=== PATIENT | male | born 1965 | race Caucasian/White ===

== ENCOUNTER 2016-07-19 12:45 | Emergency (ER) | payer MEDICAID, OTHER ==
[~2016-07-19] VITALS: Ht 170.2 cm; Wt 100.0 kg
[2016-07-19] MEDS ORDERED: SODIUM CHLORIDE 0.9% 1,000 ML IV ONE (15:21)
[2016-07-19 15:47] LABS: BASOPHILS % 1.4 % (0.0-2.0); EOSINOPHILS % 2.8 % (0.0-5.0); HEMATOCRIT. 42.5 % (42.0-52.0); HEMOGLOBIN. 14.2 g/dL (14.0-18.0); LYMPHOCYTES % 25.2 % (20.0-50.0); MEAN CORPUSCULAR HEMOGLOBIN 29.2 pg (28.0-32.0); MEAN CORPUSCULAR HGB CONC 33.3 g/dL (31.0-37.0); MEAN CORPUSCULAR VOLUME 87.7 fL (80.0-94.0); MEAN PLATELET VOLUME 8.3 fl (7.4-10.4); MONOCYTES % 8.4 % (2.0-8.0); NEUTROPHILS % 62.2 % (40.0-76.0); PLATELET 274 x1000/uL (130-400); RED BLOOD CELL COUNT 4.85 mill/uL (4.7-6.1); RED CELL DISTRIBUTION WIDTH 13.6 % (11.6-14.6); WHITE BLOOD COUNT 10.8 x1000/uL (4.5-11.0)
[2016-07-19 15:52] LABS: ALBUMIN 3.5 g/dL (3.4-5.0); ANION GAP 13; CALCIUM 8.3 mg/dL (8.5-10.1); CARBON DIOXIDE 25 mEq/L (21-32); CHLORIDE 107 mEq/L (98-107); INDEX HEMOLYSI 1 (1-3); INDEX ICTERIC 1 (1-4); INDEX LIPEMIC 1 (1-3); LIPASE 127 IU/L (73-393); UREA NITROGEN BLOOD 20 mg/dL (7-21)
[2016-07-19 15:54] LABS: INR 1.1; PARTIAL THROMBOPLASTIN TIME 27.1 sec (24.0-34.0); PROTHROMBIN TIME 11.7 sec
[2016-07-19 16:00] LABS: ALANINE AMINOTRANSFERASE 50 IU/L (13-61); eGFR > 60 mL/min (>60)
[2016-07-19 16:01] LABS: TROPONIN I 0.02 ng/mL (0.00-0.04)
[2016-07-19 18:54] VITALS: BP 135/88
[2016-07-19 18:56] LABS: CLARITY URINE CLEAR (CLEAR); COLOR URINE YELLOW (YELLOW); GLUCOSE URINE NEGATIVE (NEGATIVE); KETONES URINE 1+ (NEGATIVE); LEUKOCYTE ESTERASE URINE NEGATIVE (NEGATIVE); NITRITE URINE NEGATIVE (NEGATIVE); OCCULT BLOOD URINE NEGATIVE (NEGATIVE); PROTEIN URINE NEGATIVE (NEGATIVE); SPECIFIC GRAVITY URINE 1.028 (1.005-1.030)
[2016-07-19 19:07] LABS: *AMPHETAMINES SCREEN URINE PRESUMTIVE POSITIVE (NEGATIVE); *BARBITURATES SCREEN URINE NEGATIVE (NEGATIVE); *BENZODIAZEPINES SCREEN URINE NEGATIVE (NEGATIVE); *COCAINE SCREEN URINE NEGATIVE (NEGATIVE); CANNABINOID URINE SCREEN NEGATIVE (NEGATIVE); ECSTASY MDMA SCREEN URINE CONF.TEST INDICATED (NEGATIVE); METHADONE URINE SCREEN NEGATIVE (NEGATIVE); OPIATES URINE SCREEN NEGATIVE (NEGATIVE); PHENCYCLIDINE URINE SCREEN NEGATIVE (NEGATIVE)
== END 2016-07-19 19:12 | disposition home or self-care (01) ==
LOC: ER 15:19
DX: R42 Dizziness and giddiness (principal); F15.10 Other stimulant abuse, uncomplicated; F17.210 Nicotine dependence, cigarettes, uncomplicated
CPT/HCPCS: 36415; 80053; 80305; 81003; 83690; 84484; 85025; 85610; 85730; 93005; 96360; 99285; J7030; Z7610

== ENCOUNTER 2016-09-10 09:05 | Emergency (ER) | payer SELFPAY ==
[~2016-09-10] VITALS: Ht 172.7 cm; Wt 80.0 kg
[2016-09-10 11:19] VITALS: BP 102/60
== END 2016-09-10 11:26 | disposition home or self-care (01) ==
LOC: ER 09:06
DX: L24.5 Irritant contact dermatitis due to other chemical products (principal); F15.10 Other stimulant abuse, uncomplicated
CPT/HCPCS: 99283

== ENCOUNTER 2018-10-12 16:11 | Emergency (ER) | payer SELFPAY ==
[~2018-10-12] VITALS: Ht 170.2 cm; Wt 90.0 kg
[2018-10-12] MEDS ORDERED: TETANUS, DIPHTHERIA, PERTUSSIS VAC/PF 0.5ML (>7YR OLD) IM ONE (18:45)
[2018-10-12] MEDS ORDERED: ACETAMINOPHEN WITH CODEINE 300/30MG TABLET PO ONE (18:45)
[2018-10-12] MEDS ORDERED: LIDOCAINE HCL/PF 1% 10 MG/ML 5ML VIAL IJ ONE (18:45)
[2018-10-12] MEDS ORDERED: BACITRACIN ZINC OINT UDPKT TOP ONE (18:45)
[2018-10-12 20:34] VITALS: BP 128/82
== END 2018-10-12 20:36 | disposition home or self-care (01) ==
LOC: ER 16:11
DX: S01.81XA Laceration without foreign body of other part of head, initial encounter (principal); S41.012A Laceration without foreign body of left shoulder, initial encounter; Z90.49 Acquired absence of other specified parts of digestive tract; Z88.8 Allergy status to other drugs, medicaments and biological substances; W25.XXXA Contact with sharp glass, initial encounter; Y93.89 Activity, other specified; Y92.89 Other specified places as the place of occurrence of the external cause; Y99.8 Other external cause status
CPT/HCPCS: 12001; 12011; 70450; 90471; 90715; 99284; J3490; Z7610

== ENCOUNTER 2018-10-22 08:56 | Emergency (ER) | payer OTHER ==
[~2018-10-22] VITALS: Ht 170.2 cm; Wt 91.0 kg
[2018-10-22 09:08] VITALS: BP 142/89
== END 2018-10-22 09:50 | disposition home or self-care (01) ==
LOC: ER 08:56
DX: Z48.02 Encounter for removal of sutures (principal)
CPT/HCPCS: 99281

== ENCOUNTER 2019-12-24 17:55 | Inpatient (IN) | payer SELFPAY ==
[~2019-12-24] VITALS: Ht 170.2 cm; Wt 108.4 kg
[2019-12-24] MEDS ORDERED: MAGNESIUM/ALUMINUM HYDROXIDE/SIMETHICONE 30ML UDC PO ONE (18:15)
[2019-12-24] MEDS ORDERED: VISCOUS LIDOCAINE 2% 15 ML UDC PO ONE (18:15)
[2019-12-24] MEDS ORDERED: ASPIRIN 81MG TABLET PO ONE ×2 (18:15→18:30)
[2019-12-24 18:25] LABS: EOSINOPHILS % 1.9 % (0.0-5.0); HEMATOCRIT. 46.7 % (42.0-52.0); HEMOGLOBIN. 15.9 g/dL (14.0-18.0); LYMPHOCYTES % 34.5 % (20.0-50.0); MEAN CORPUSCULAR HEMOGLOBIN 30.6 pg (28.0-32.0); MEAN CORPUSCULAR VOLUME 90.2 fL (80.0-94.0); MEAN PLATELET VOLUME 8.1 fl (7.4-10.4); MONOCYTES % 11.5 % (2.0-8.0); NEUTROPHILS % 51.1 % (40.0-76.0); PLATELET 259 x1000/uL (130-400); RED BLOOD CELL COUNT 5.18 mill/uL (4.7-6.1)
[2019-12-24 18:30] LABS: CHLORIDE 107 mEq/L (98-107)
[2019-12-24] MEDS ORDERED: ONDANSETRON HCL 4MG/2ML INJ IV ONE (18:30)
[2019-12-24] MEDS ORDERED: MORPHINE SULFATE 2 MG/ML CPJ (NOT FOR IM USE) IV ONE (18:30)
[2019-12-24] MEDS ORDERED: NITROGLYCERIN 0.4MG TABLET SL SL ONE (18:30)
[2019-12-24 23:10] VITALS: BP 102/69
[2019-12-25] VITALS: BP 102/69
[2019-12-25] MEDS ORDERED: ONDANSETRON HCL 4MG TABLET PO PRN (00:30)
[2019-12-25] MEDS ORDERED: NITROGLYCERIN 0.4MG TABLET SL SL PRN (00:30)
[2019-12-25] MEDS ORDERED: KETOROLAC 15MG/ML VIAL IV PRN (00:30)
[2019-12-25 04:00] VITALS: BP 102/61
[2019-12-25] MEDS ORDERED: POTASSIUM CHLORIDE 20MEQ TABLET SR PO NR (07:00)
[2019-12-25 07:10] LABS: EOSINOPHILS % 5.7 % (0.0-5.0); HEMATOCRIT. 42.5 % (42.0-52.0); HEMOGLOBIN. 14.3 g/dL (14.0-18.0); LYMPHOCYTES % 41.1 % (20.0-50.0); MEAN CORPUSCULAR HEMOGLOBIN 30.5 pg (28.0-32.0); MEAN CORPUSCULAR VOLUME 90.6 fL (80.0-94.0); MEAN PLATELET VOLUME 8.9 fl (7.4-10.4); MONOCYTES % 14.2 % (2.0-8.0); PLATELET 240 x1000/uL (130-400); RED BLOOD CELL COUNT 4.69 mill/uL (4.7-6.1)
[2019-12-25 07:37] LABS: CHLORIDE 109 mEq/L (98-107)
[2019-12-25 07:53] LABS: LDL CHOLESTEROL 60 mg/dL (5-100)
[2019-12-25 07:54] LABS: CREATINE KINASE 660 IU/L (39-308)
[2019-12-25 07:56] LABS: HDL CHOLESTEROL 35 mg/dL (40-59)
[2019-12-25 07:57] LABS: CREATINE KINASE MB FRACTION 5.9 ng/mL (0.5-3.6)
[2019-12-25 08:00] VITALS: BP 92/57
[2019-12-25] MEDS ORDERED: ASPIRIN 81MG TABLET PO SCH (09:00)
[2019-12-25] MEDS ORDERED: PANTOPRAZOLE SODIUM 40 MG/VIAL IV SCH (09:00)
[2019-12-25] MEDS ORDERED: ENOXAPARIN 30MG/0.3ML SYR SUBCUT SCH (09:00)
[2019-12-25 11:15] VITALS: BP 105/55
[2019-12-25 11:28] VITALS: BP 20/105
[2019-12-25 13:39] LABS: CREATINE KINASE 638 IU/L (39-308); CREATINE KINASE MB FRACTION 5.4 ng/mL (0.5-3.6)
== END 2019-12-25 13:50 | disposition home or self-care (01) | DRG 203 ==
LOC: ER 17:55 → 8WST 21:47 → EDBEDREQ 21:53 → EDBEDREQTM 21:53 → ENRESERV 22:13
PROVIDERS: ADMIT Hospitalist; ATTEND Hospitalist
DX: M94.0 Chondrocostal junction syndrome [Tietze] (principal); F15.10 Other stimulant abuse, uncomplicated; Z90.49 Acquired absence of other specified parts of digestive tract; Z82.49 Family history of ischemic heart disease and other diseases of the circulatory system
CPT/HCPCS: 36415; 71045; 80048; 80053; 80061; 82550; 82553; 83880; 84484; 85025; 93005; 99285; C9113; J1650; J2270; J2405

== ENCOUNTER 2020-06-15 10:36 | Emergency (ER) | payer SELFPAY ==
[~2020-06-15] VITALS: Ht 170.2 cm; Wt 91.0 kg
[2020-06-15 10:42] VITALS: BP 141/86
[2020-06-15] MEDS ORDERED: ACETAMINOPHEN 325MG TABLET PO ONE (11:00)
[2020-06-15] MEDS ORDERED: TETANUS, DIPHTHERIA, PERTUSSIS VAC/PF 0.5ML (>7YR OLD) IM ONE (11:15)
== END 2020-06-15 11:50 | disposition home or self-care (01) ==
LOC: ER 10:36
DX: S60.322A Blister (nonthermal) of left thumb, initial encounter (principal); Z90.49 Acquired absence of other specified parts of digestive tract; Z87.891 Personal history of nicotine dependence; W22.8XXA Striking against or struck by other objects, initial encounter; Y93.89 Activity, other specified; Y92.018 Other place in single-family (private) house as the place of occurrence of the external cause
CPT/HCPCS: 73130; 90471; 90715; 99283

== ENCOUNTER 2021-01-05 23:00 | Emergency (ER) | payer MEDICAID ==
[~2021-01-05] VITALS: Ht 170.2 cm; Wt 96.0 kg
[2021-01-06] MEDS ORDERED: MORPHINE SULFATE 4 MG/ML CPJ (NOT FOR IM USE) IV STA (00:13)
[2021-01-06] MEDS ORDERED: ONDANSETRON HCL 4MG/2ML INJ IV STA (00:13)
[2021-01-06 00:45] LABS: BASOPHILS % 0.2 % (0.0-2.0); EOSINOPHILS % 2.2 % (0.0-5.0); HEMATOCRIT. 45.4 % (42.0-52.0); HEMOGLOBIN. 15.2 g/dL (14.0-18.0); LYMPHOCYTES % 17.1 % (20.0-50.0); MEAN CORPUSCULAR HEMOGLOBIN 29.7 pg (28.0-32.0); MEAN CORPUSCULAR VOLUME 88.6 fL (80.0-94.0); MEAN PLATELET VOLUME 8.3 fl (7.4-10.4); MONOCYTES % 6.1 % (2.0-8.0); NEUTROPHILS % 74.4 % (40.0-76.0); PLATELET 262 x1000/uL (130-400); RED BLOOD CELL COUNT 5.12 mill/uL (4.7-6.1); RED CELL DISTRIBUTION WIDTH 13.6 % (11.6-14.6)
[2021-01-06 00:48] LABS: CHLORIDE 110 mEq/L (98-107)
[2021-01-06 00:49] LABS: CLARITY URINE CLEAR (CLEAR); COLOR URINE YELLOW (YELLOW); KETONES URINE NEGATIVE (NEGATIVE); LEUKOCYTE ESTERASE URINE NEGATIVE (NEGATIVE); NITRITE URINE NEGATIVE (NEGATIVE); OCCULT BLOOD URINE NEGATIVE (NEGATIVE); PH URINE 6.5 (4.5-8.0); PROTEIN URINE NEGATIVE (NEGATIVE); UROBILINOGEN URINE 0.2 E.U./dL (0.2-1.0)
[2021-01-06] MEDS ORDERED: ONDA4TAB5 MT (02:49)
[2021-01-06] MEDS ORDERED: IOHEXOL-300 100 ML BOTTLE ONE (04:44)
[2021-01-06 06:05] VITALS: BP 140/72
== END 2021-01-06 06:10 | disposition home or self-care (01) ==
LOC: ER 23:00
DX: R10.31 Right lower quadrant pain (principal); Z90.49 Acquired absence of other specified parts of digestive tract
CPT/HCPCS: 36415; 74177; 80053; 81003; 83690; 85025; 93005; 96374; 96375; 99285; J2270; J2405; Q9967

== ENCOUNTER 2021-09-15 09:11 | Emergency (ER) | payer MEDICAID ==
[~2021-09-15] VITALS: Ht 170.2 cm; Wt 100.0 kg
[~2021-09-15 09:11] MED LIST: ONDA4TAB5 MT
[2021-09-15 09:31] VITALS: BP 139/78
[2021-09-15] MEDS ORDERED: ACETAMINOPHEN 325MG TABLET PO ONE (09:45)
[2021-09-15] MEDS ORDERED: BENZONATATE 100MG CAPSULE PO ONE (09:45)
[2021-09-15] MEDS ORDERED: FLUT9.9S BOTHNSTRLS (10:43)
[2021-09-15] MEDS ORDERED: TOPUD PO (10:43)
== END 2021-09-15 11:47 | disposition home or self-care (01) ==
LOC: ER 09:11
DX: B34.9 Viral infection, unspecified (principal); Z20.822 Contact with and (suspected) exposure to COVID-19; Z90.49 Acquired absence of other specified parts of digestive tract
CPT/HCPCS: 71045; 87426; 93005; 99285; C9803

== ENCOUNTER 2021-10-19 11:09 | Emergency (ER) | payer MEDICAID ==
[~2021-10-19] VITALS: Ht 170.2 cm; Wt 89.0 kg
[~2021-10-19 11:09] MED LIST changes: +FLUT9.9S BOTHNSTRLS; +TOPUD PO
[2021-10-19] MEDS ORDERED: IBUPROFEN 800MG TABLET PO ONE (13:45)
[2021-10-19 13:48] VITALS: BP 134/84
[2021-10-19] MEDS ORDERED: IBUP-2029 MT (15:17)
[2021-10-19] MEDS ORDERED: TOPUD MT (15:17)
== END 2021-10-19 15:37 | disposition home or self-care (01) ==
LOC: ER 11:09
DX: S46.212A Strain of muscle, fascia and tendon of other parts of biceps, left arm, initial encounter (principal); Z90.49 Acquired absence of other specified parts of digestive tract; X58.XXXA Exposure to other specified factors, initial encounter; Y93.89 Activity, other specified; Y92.89 Other specified places as the place of occurrence of the external cause; Y99.8 Other external cause status
CPT/HCPCS: 73060; 76881; 99284

== ENCOUNTER 2021-10-25 20:41 | Emergency (ER) | payer MEDICAID ==
[~2021-10-25] VITALS: Ht 172.7 cm; Wt 108.3 kg
[~2021-10-25 20:41] MED LIST changes: +IBUP-2029 MT; +TOPUD MT
[2021-10-25 20:57] VITALS: BP 146/89
[2021-10-26] MEDS ORDERED: ACET-2708 PO (12:27)
== END 2021-10-26 08:00 | disposition left against medical advice (07) ==
LOC: ER 20:41
DX: Z53.21 Procedure and treatment not carried out due to patient leaving prior to being seen by health care provider (principal)

== ENCOUNTER 2021-10-26 08:09 | Emergency (ER) | payer MEDICAID ==
[~2021-10-26] VITALS: Ht 167.6 cm; Wt 89.0 kg
[2021-10-26 08:23] VITALS: BP 142/85
[2021-10-26] MEDS ORDERED: ACETAMINOPHEN 325MG TABLET PO NR (12:19)
[2021-10-26] MEDS ORDERED: ACET-2708 PO (12:27)
== END 2021-10-26 13:03 | disposition home or self-care (01) ==
LOC: ER 09:22
DX: S70.12XA Contusion of left thigh, initial encounter (principal); X58.XXXA Exposure to other specified factors, initial encounter; Y93.89 Activity, other specified; Y92.89 Other specified places as the place of occurrence of the external cause; Y99.8 Other external cause status
CPT/HCPCS: 93971; 99284